=== PATIENT | female | born 1970 | race Caucasian/White ===

== ENCOUNTER 2018-02-17 19:46 | Emergency (ER) | payer MEDICARE, OTHER, MEDICAID ==
[2018-02-17] MEDS: ACETAMINOPHEN 500 MG TAB PO (21:30)
== END 2018-02-17 23:49 | disposition home or self-care (01) ==
LOC: FTE 19:46
DX: S49.91XA Unspecified injury of right shoulder and upper arm, initial encounter (principal); W01.0XXA Fall on same level from slipping, tripping and stumbling without subsequent striking against object, initial encounter; Y92.009 Unspecified place in unspecified non-institutional (private) residence as the place of occurrence of the external cause
CPT/HCPCS: 73030; 73030-RT; 99283-25